=== PATIENT | male | born 1945 | race Caucasian/White ===

== ENCOUNTER 2016-11-20 19:04 | Inpatient (IN) | payer MEDICARE, OTHER ==
[2016-11-21] MEDS ORDERED: ONDANSETRON HCL INJ/PF 4 MG/2 ML SDV IV ONE ×2 (00:28→04:09)
[2016-11-21] MEDS ORDERED: MORPHINE SULFATE 10 MG/ML INJ IV ONE (00:28)
[2016-11-21] MEDS ORDERED: NORMAL SALINE 1000 ML 1,000 ML IV ONE ×3 (00:29→01:21)
--- NOTE | 2016-11-21 00:30 | ER Document Report ---
ED GI/ - General Chief Complaint: Nausea/Vomiting Stated Complaint: ABDOMINAL PAIN Time seen by provider: 00:25 Notes: Patient is a 71-year-old male that comes emergency department for chief complaint of pain is mid upper abdomen, symptoms started at about one time while he was eating, he states he vomited 4 times during the afternoon and evening, he states he still has some sharp pain in his mid abdomen. Denies abnormal bowel movements, denies blood in the vomit, denies fever, no obvious sick contacts. Patient is very healthy with only a history of hypertension, denies having any surgeries other than cosmetic. TRAVEL OUTSIDE OF THE [place] IN LAST 30 DAYS: No - Related Data Allergies/Adverse Reactions: No Known Allergies Allergy (Verified 11/21/16 01:30) Past Medical History - General Information source: Patient - Social History Smoking Status: Never Smoker Frequency of alcohol use: Heavy Drug Abuse: None Lives with: Family Family History: Reviewed & Not Pertinent - Past Medical History Cardiac Medical History: Reports: Hx Hypertension Renal/ Medical History: Denies: Hx Peritoneal Dialysis Past Surgical History: Reports: Other - nasal repair - Immunizations Hx Diphtheria, Pertussis, Tetanus Vaccination: Yes Review of Systems - Review of Systems Constitutional: No symptoms reported EENT: No symptoms reported Cardiovascular: No symptoms reported Respiratory: No symptoms reported Gastrointestinal: See HPI Genitourinary: No symptoms reported Male Genitourinary: No symptoms reported Musculoskeletal: No symptoms reported Skin: No symptoms reported Hematologic/Lymphatic: No symptoms reported Neurological/Psychological: No symptoms reported Physical Exam - Vital signs Vitals: Temp Pulse Resp BP Pulse Ox 97.7 F 90 18 147/90 H 97 11/20/16 19:57 11/20/16 19:57 11/20/16 19:57 11/20/16 19:57 11/20/16 19:57 Interpretation: Normal - General General appearance: Appears well, Alert In distress: None - HEENT Head: Normocephalic, Atraumatic Eyes: Normal Conjunctiva: Normal Extraocular movements intact: Yes Eyelashes: Normal Pupils: PERRL Sinus: Normal Nasal: Normal Mouth/Lips: Normal Mucous membranes: Normal Pharynx: Normal Neck: Normal - Respiratory Respiratory status: No respiratory distress Chest status: Nontender Breath sounds: Normal. No: Decreased air movement, Wheezing Chest palpation: Normal - Cardiovascular Rhythm: Regular. No: Tachycardia Heart sounds: Normal auscultation, S1 appreciated, S2 appreciated Murmur: No - Abdominal Inspection: Normal Distension: No distension Bowel sounds: Normal Tenderness: Tender - tender in epigastric and LUQ mainly, generally tender otherwise; umbilical hernia present, this was easily reduced, no evidence of obstruction Organomegaly: No organomegaly - Back Back: Normal, Nontender. No: Tender - Extremities General upper extremity: Normal inspection, Nontender, Normal color, Normal ROM , Normal temperature General lower extremity: Normal inspection, Nontender, Normal color, Normal ROM , Normal temperature, Normal weight bearing. No: Kailyn's sign - Neurological Neuro grossly intact: Yes Cognition: Normal Orientation: AAOx4 Vas[place] Coma Scale Eye Opening: Spontaneous [place] Coma Scale Verbal: Oriented [place] Coma Scale Motor: Obeys Commands [place] Coma Scale Total: 15 Speech: Normal Motor strength normal: LUE, RUE, LLE, RLE Sensory: Normal - Psychological Associated symptoms: Normal affect, Normal mood - Skin Skin Temperature: Warm Skin Moisture: Dry Skin Color: Normal Course - Re-evaluation Re-evalutation: Umbilical hernia is present but is easily reduced and is not tender. Tenderness is in the upper abdomen. CBC shows leukocytosis at 15,000 with elevated neutrophils, chemistries unremarkable except for significantly elevated lipase consistent with pancreatitis. Patient was already drinking contrast for a CT pending chemistry results, patient was unable to tolerate this and vomited twice, CT was performed without oral contrast being sufficiently drunk. CT shows pancreatitis , no other abnormalities. Patient was given additional symptom management, IV fluids. Patient much more comfortable on reevaluation. Discussed with Dr. Flores. Discussed with Dr. Newby, internal medicine, recommends an ultrasound to rule out completely the possibility of a small stone/obstruction. Ultrasound was performed and is normal. Patient admitted to the hospital for acute pancreatitis. - Vital Signs Vital signs: Temp Pulse Resp BP Pulse Ox 97.7 F 90 18 147/90 H 97 11/20/16 19:57 11/20/16 19:57 11/20/16 19:57 11/20/16 19:57 11/20/16 19:57 - Laboratory Result Diagrams: 11/21/16 00:14 11/21/16 00:14 Laboratory results interpreted by me: 11/21/16 11/21/16 11/21/16 00:14 00:14 00:14 WBC 15.1 H RDW 14.3 H Seg Neuts % (Manual) 88 H Lymphocytes % (Manual) 7 L Abs Neuts (Manual) 13.3 H BUN 22 H Glucose 161 H Lactic Acid 3.3 H Creatine Kinase 51 L Lipase 6918.2 H Urine Protein Urine Ketones Urine Blood Urine Ascorbic Acid 11/21/16 11/21/16 00:14 04:34 WBC RDW Seg Neuts % (Manual) Lymphocytes % (Manual) Abs Neuts (Manual) BUN Glucose Lactic Acid 2.3 H Creatine Kinase Lipase Urine Protein >=500 H Urine Ketones TRACE H Urine Blood SMALL H Urine Ascorbic Acid 20 H Discharge - Discharge Clinical Impression: Abdominal pain Qualifiers: Abdominal location: generalized Qualified Code(s): R10.84 - Generalized abdominal pain Vomiting Qualifiers: Vomiting type: unspecified Vomiting Intractability: non-intractable Nausea presence: with nausea Qualified Code(s): R11.2 - Nausea with vomiting, unspecified Pancreatitis Qualifiers: Chronicity: acute Pancreatitis type: alcohol induced Acute pancreatitis complication: unspecified Qualified Code(s): K85.20 - Alcohol induced acute pancreatitis without necrosis or infection Condition: Stable Disposition: ADMITTED INPATIENT Admitting Provider: Hospitalist Unit Admitted: Telemetry
[2016-11-21 00:42] LABS: APPEARANCE,URINE CLOUDY; BILIRUBIN,URINE NEGATIVE (NEGATIVE); GLUCOSE, URINE NEGATIVE (NEGATIVE); KETONES,URINE TRACE mg/dL (NEGATIVE); LEUKOCYTE ESTERASE,URINE NEGATIVE (NEGATIVE); NITRITE,URINE NEGATIVE (NEGATIVE); PROTEIN,URINE >=500 mg/dL (NEGATIVE); URINE SPECIFIC GRAVITY 1.031; UROBILINOGEN,URINE NEGATIVE mg/dL (<2.0)
[2016-11-21 00:43] LABS: ALANINE AMINOTRANSFERASE 30 U/L (21-72); ALBUMIN 4.8 g/dL (3.5-5.0); ALKALINE PHOSPHATASE 66 U/L (38-126); ASPARTATE AMINO TRANSFERASE 27 U/L (17-59); BILIRUBIN,DIRECT 0.1 mg/dL (0.0-0.4); BILIRUBIN,TOTAL 0.9 mg/dL (0.2-1.3); BLOOD UREA NITROGEN 22 mg/dL (7-20); CALCIUM 9.7 mg/dL (8.4-10.2); CHLORIDE 101 mmol/L (98-107); CREATINE KINASE 51 U/L (55-170); CREATININE RESULT 0.92 mg/dL (0.52-1.25); GLUCOSE 161 mg/dL (75-110); TOTAL PROTEIN 7.6 g/dL (6.3-8.2)
[2016-11-21 00:52] LABS: ANION GAP 18 (5-19); CARBON DIOXIDE 24 mmol/L (22-30); POTASSIUM 4.3 mmol/L (3.6-5.0); SODIUM 143.2 mmol/L (137-145)
[2016-11-21 00:59] LABS: LIPASE 6918.2 U/L (23-300)
[2016-11-21 01:04] LABS: HEMATOCRIT 48.2 % (37.9-51.0); HEMOGLOBIN 16.5 g/dL (13.5-17.0); HGB HCT DIFFERENCE 1.3; MEAN CORPUSCULAR HEMOGLOBIN 31.8 pg (27.0-33.4); MEAN CORPUSCULAR HGB CONC 34.3 g/dL (32.0-36.0); MEAN CORPUSCULAR VOLUME 93 fl (80-97); RED BLOOD COUNT 5.21 10^6/uL (4.35-5.55); RED CELL DISTRIBUTION WIDTH 14.3 % (11.5-14.0); WHITE BLOOD COUNT 15.1 10^3/uL (4.0-10.5)
[2016-11-21 01:06] LABS: BASOPHILS % (MANUAL) 0 % (0-2); EOSINOPHILS % (MANUAL) 0 % (0-6); LYMPHOCYTES % (MANUAL) 7 % (13-45); TOTAL CELLS COUNTED 100
[2016-11-21 01:08] LABS: ANISOCYTOSIS SLIGHT; TOXIC GRANULATION SLIGHT; TOXIC VACUOLATION PRESENT
[2016-11-21] MEDS ORDERED: HYDROMORPHONE HCL INJ/PF 2 MG/ML AMPULE IV ONE ×2 (01:53→04:09)
[2016-11-21] MEDS ORDERED: PROMETHAZINE HCL INJ 25 MG/1 ML VIAL IV PRN (07:33)
[2016-11-21] MEDS ORDERED: MORPHINE SULFATE 10 MG/ML INJ IV PRN (07:33)
[2016-11-21] MEDS ORDERED: ACETAMINOPHEN 325 MG TABLET PO PRN (07:33)
[2016-11-21 08:00] LABS: ADD ON TESTING BLD IN LAB ACKNOWLEDGE
[2016-11-21 08:25] LABS: CHOLESTEROL 217.48 mg/dL (0-200); Direct HDL 80 mg/dL (>40); TRIGLYCERIDES 53 mg/dL (<150)
[2016-11-21 08:35] LABS: DIRECT LDL 130 mg/dL (<100)
--- NOTE | 2016-11-21 08:40 | PDOC H&P ---
History of Present Illness Admission Date/PCP: 11/21/16 06:21 MAYLIN SANTOS MD Patient complains of: ABD PAIN, N/V History of Present Illness: YURI CARLISLE is a 71 year old male with underlying hypertension, and arthritis, who presents to the emergency room for evaluation of above complaints. Patient has been discussed with emergency room nurse practitioner who evaluated the patient. He describes the onset shortly after eating lunch on the of this month of fairly pronounced sharp epigastric abdominal pain without radiation. Nothing in particular made the pain worse. No prior such episodes. Multiple associated episodes of nonbloody emesis. No diarrhea. No fever or chills. No history of peptic ulcer disease. No history of pancreatitis. No problems with hyperlipidemia. Drinks 2 glasses of wine a day, occasionally more. No tobacco or illicit drug use. Laboratory results are listed in [employer] and are reviewed. X-ray summary results are listed below, with full report(s) reviewed. . EKG pending. Social history/personal habits: . 2 children. Retired. Personal habits as noted above. Allergies/adverse reactions NKDA. Home medications Home medications initially autopopulated into [employer] may not accurately reflect patient's true medications, dosages, and/or frequencies. oil bay technician to reconcile medications. Unfortunately, patient uncertain of all medications/dosages/frequencies. REVIEW OF SYSTEMS: Constitutional: No fever or chills. Eyes: Wears glasses. ENT: No swallowing problems or complaints. No hearing problems or complaints. Pulmonary: No current complaints. Cardiovascular: No current complaints, including chest pain. Gastrointestinal: See history and present illness. Skin: No current complaints, including rashes. Hematologic: No unusual easy bruising or bleeding. Neurologic: No current complaints, including numbness or tingling. Musculoskeletal: Mild Joint pain from arthritis. Psychiatric: No current complaints, including anxiety or depression. Endocrine: No current complaints, including polyuria. Genitourinary: No current complaints, including dysuria. PHYSICAL EXAMINATION: is present at his side; patient approves. 5 feet 8 inches tall. 106.5 kg. BMI 35.7 kg/m.Blood pressure 147/90. Temp 97.7. Pulse 90 and regular. Respirations are 20 and unlabored. 97% saturation on room air. Obese otherwise well-developed male appearing approximately his stated age. Pleasant awake alert and cooperative. No obvious distress other than perhaps mildly anxious. No agitation. Skin is warm and dry. No grossly obvious evidence of rash in areas of skin examined. No subcutaneous nodules palpated. ENT: Hearing grossly normal to normal conversation. Tongue midline on protrusion pink and slightly tacky. Eyes: No scleral icterus. Pupils equal and reactive to light at 4 mm. [place] conjunctivae. Neck is supple and nontender to gentle active range of motion and palpation. Midline trachea. No palpable thyroid nodule mass enlargement or tenderness. Lymphatic: No palpable cervical or clavicular nodes. Neck and lymphatic exams limited by patient body habitus. Psychiatric: Reasonable insight into acute and chronic medical issues. Oriented to time location and why here. Lungs: Auscultation reveals clear and equal breath sounds bilaterally. No use of accessory respiratory muscles. Cardiovascular: Heart regular rate and rhythm, without gallop murmur or rub. No carotid or abdominal aortic bruits. No ankle or pedal edema. Faintly palpable dorsalis pedis pulses. Abdomen: soft, somewhat obese, with occasional bowel sounds. Mild epigastric discomfort to palpation, but without evidence of guarding or peritoneal signs. Unable to adequately evaluate abdomen for masses or organomegaly due to body habitus and discomfort. Extremities: Feet are warm and dry. No calf tenderness to compression. No grossly obvious visual evidence of calf swelling. Gentle manipulation of lower extremities fails to reveal any obvious evidence of injury or instability to knees hips or ankles. Neurologic: Moves upper extremities grossly normally. Patellar reflexes absent. Absent Babinski. Light touch is intact at feet. Dorsiflexion and plantarflexion of feet 5 / 5 and symmetric. Past Medical History Cardiac Medical History: Reports: Hypertension Denies: Congestive Heart Failure, DVT, Myocardial Infarction, Hyperlipidema, Pulmonary Embolism Pulmonary Medical History: Denies: Asthma, Chronic Obstructive Pulmonary Disease (COPD), Sleep Apnea Neurological Medical History: Denies: Hemorrhagic CVA, Ischemic CVA, Seizures Endocrine Medical History: Denies: Diabetes Mellitus Type 1, Diabetes Mellitus Type 2, Hyperthyroidism, Hypothyroidism Renal/ Medical History: Reports: None GI Medical History: Denies: Cirrhosis, Gastroesophageal Reflux Disease, Hepatitis, Peptic Ulcer Disease Musculoskeltal Medical History: Reports: Arthritis Skin Medical History: Reports: Other - Several precancerous skin lesions have been removed by featheredger and reducer machine. Psychiatric Medical History: Denies: Depression, General Anxiety Disorder, Substance Abuse, Tobacco Dependency Hematology: Reports: None Infectious Medical History: Denies: Hepatitis B, Hepatitis C Past Surgical History Past Surgical History: Reports: Other - nasal repair Social History Information Source: Patient, Emergency Med Personnel, [facility] Records Lives with: Spouse/Significant other Smoking Status: Never Smoker Frequency of Alcohol Use: Social Drugs: None - Advance Directive Resuscitation Status: Full Code Surrogate healthcare decision maker:: Family History Family History: Reviewed & Not Pertinent Parental Family History Reviewed: Yes - uncertain, patient having been adopted. Children Family History Reviewed: Yes - Healthy Sibling(s) Family History Reviewed.: NA Medication/Allergy Home Medications: Fexofenadine HCl [Chela Allergy] 180 mg PO DAILY 11/21/16 Losartan/Hydrochlorothiazide [Hyzaar 100-12.5 Tablet] 1 tab PO DAILY 11/21/16 Allergies/Adverse Reactions: No Known Allergies Allergy (Verified 11/21/16 01:30) Physical Exam Vital Signs: Temp Pulse Resp BP Pulse Ox 97.7 F 90 18 147/90 H 97 11/20/16 19:57 11/20/16 19:57 11/20/16 19:57 11/20/16 19:57 11/20/16 19:57 Results Impressions: Abdomen/Pelvis CT 11/21/16 00:00 IMPRESSION: Small to moderate fluid dispersed through the abdomen probably related to pancreatitis ; laboratory correlation recommended. Abdomen Ultrasound 11/21/16 03:49 IMPRESSION: No acute findings. Limitation. Assessment & Plan - Diagnosis (1) DVT prophylaxis Is this a current diagnosis for this admission?: Yes (2) Pancreatitis Qualifiers: Chronicity: acute Pancreatitis type: unspecified pancreatitis type Acute pancreatitis complication: unspecified Qualified Code(s): K85.90 - Acute pancreatitis without necrosis or infection, unspecified Is this a current diagnosis for this admission?: YesPlan: Usual pancreatitis protocol, with ice chips only.. Medication for control of pain, nausea and vomiting. Lipid panel. I have strongly encouraged patient not to get out of bed without notifying staff , to avoid a fall with injury. Knee high SCDs for DVT prophylaxis, [along with subcutaneous Lovenox . Impression and plans were discussed with patient, and , both of whom concur. Time spent in evaluation and management of patient: 64 minutes. (3) Alcohol use Is this a current diagnosis for this admission?: YesPlan: Daily banana bag. Observe for signs of withdrawal. (4) HTN (hypertension) Qualifiers: Hypertension type: essential hypertension Qualified Code(s): I10 - Essential (primary) hypertension Is this a current diagnosis for this admission?: YesPlan: Resume home medications, which he states he takes only on a when necessary basis , as appropriate once these have been determined and reviewed. (5) Leukocytosis Qualifiers: Leukocytosis type: unspecified Qualified Code(s): D72.829 - Elevated white blood cell count, unspecified Is this a current diagnosis for this admission?: YesPlan: followup CBC w/differential. - Inpatient Certification Based on my medical assessment, after consideration of the patient's comorbidities, presenting symptoms, or acuity I expect that the services needed warrant INPATIENT care.: Yes I certify that my determination is in accordance with my understanding of Medicare's requirements for reasonable and necessary INPATIENT services [42 CFR 412.3e].: Yes Medical Necessity: Need Close Monitoring Due to Risk of Patient Decompensation, Need For IV Fluids, Need For Continuous Telemetry Monitoring, Need for Pain Control, Risk of Complication if Not Cared For in Hospital, Risk of Diagnosis Which Will Require Inpatient Eval/Care/Monitoring Post Hospital Care: D/C or Transfer Summary
[2016-11-21] MEDS: ONDANSETRON HCL INJ/PF 4 MG/2 ML SDV IV PRN (09:43)
[2016-11-21] MEDS: DOCUSATE SODIUM 100 MG CAPSULE PO SCH ×2 (11:46→17:07)
[2016-11-21] MEDS: ENOXAPARIN SODIUM INJ 40 MG/0.4 ML DISP.SYRIN SUBCUT SCH (11:48)
[2016-11-21] MEDS: NORMAL SALINE 1000 ML 1,000 ML with THIAMINE HCL 100 MG, MVI, ADULT NO.1 WITH VIT K 10 ... IV PRN ×4 (14:59)
[2016-11-21] MEDS: TRAMADOL HCL 50 MG TABLET PO PRN ×2 (15:19→19:47)
--- NOTE | 2016-11-21 15:35 | PDOC PROGRESS REPORT ---
Subjective Progress Note for:: 11/21/16 Subjective:: The patient was seen earlier today on rounds. The patient denies any diarrhea, shortness of breath, dizziness, chest pain, heart palpitations, fevers, or chills. At this time abdominal pain has been controlled with Tylenol. The patient does admit to having nausea but no vomiting. The patient has remained afebrile. Blood pressures are elevated. When prompted the patient voices no other concerns at this time. Review of systems: The rest of the review of systems is negative. Physical Exam Vital Signs: Temp Pulse Resp BP Pulse Ox 97.7 F 98 16 173/71 H 97 11/21/16 12:02 11/21/16 14:33 11/21/16 12:02 11/21/16 12:02 11/21/16 12:02 Intake & Output 11/19/16 11/20/16 11/21/16 23:59 23:59 23:59 Output Total 300 Balance -300 Weight 108.8 kg General appearance: PRESENT: no acute distress, cooperative, well-developed, well-nourished Head exam: PRESENT: atraumatic, normocephalic Eye exam: PRESENT: conjunctiva pink, EOMI, PERRLA. ABSENT: scleral icterus Ear exam: PRESENT: normal external ear exam Mouth exam: PRESENT: moist, tongue midline Neck exam: ABSENT: carotid bruit, JVD, lymphadenopathy, thyromegaly Respiratory exam: PRESENT: clear to auscultation emma, symmetrical, unlabored. ABSENT: rales, rhonchi, tachypnea, wheezes Cardiovascular exam: PRESENT: RRR. ABSENT: diastolic murmur, rubs, systolic murmur Pulses: PRESENT: normal dorsalis pedis pul Vascular exam: PRESENT: normal capillary refill GI/Abdominal exam: PRESENT: normal bowel sounds, soft, tenderness - Diffusely. ABSENT: distended, guarding, mass, organolmegaly, rebound Rectal exam: PRESENT: deferred Extremities exam: PRESENT: full ROM. ABSENT: calf tenderness, clubbing, pedal edema Neurological exam: PRESENT: alert, awake, oriented to person, oriented to place , oriented to time, oriented to situation, CN II-XII grossly intact. ABSENT: motor sensory deficit Psychiatric exam: PRESENT: appropriate affect, normal mood. ABSENT: homicidal ideation, suicidal ideation Skin exam: PRESENT: dry, intact, warm. ABSENT: cyanosis, rash Results Laboratory Results: Labs- Last Values WBC 15.1 10^3/uL (4.0-10.5) H 11/21/16 00:14 RBC 5.21 10^6/uL (4.35-5.55) 11/21/16 00:14 Hgb 16.5 g/dL (13.5-17.0) 11/21/16 00:14 Hct 48.2 % (37.9-51.0) 11/21/16 00:14 MCV 93 fl (80-97) 11/21/16 00:14 MCH 31.8 pg (27.0-33.4) 11/21/16 00:14 MCHC 34.3 g/dL (32.0-36.0) 11/21/16 00:14 RDW 14.3 % (11.5-14.0) H 11/21/16 00:14 Plt Count 284 10^3/uL (150-450) 11/21/16 00:14 Total Counted 100 11/21/16 00:14 Seg Neutrophils % Not Reportable 11/21/16 00:14 Seg Neuts % (Manual) 88 % (42-78) H 11/21/16 00:14 Lymphocytes % Not Reportable 11/21/16 00:14 Lymphocytes % (Manual) 7 % (13-45) L 11/21/16 00:14 Monocytes % Not Reportable 11/21/16 00:14 Monocytes % (Manual) 5 % (3-13) 11/21/16 00:14 Eosinophils % Not Reportable 11/21/16 00:14 Eosinophils % (Manual) 0 % (0-6) 11/21/16 00:14 Basophils % Not Reportable 11/21/16 00:14 Basophils % (Manual) 0 % (0-2) 11/21/16 00:14 Absolute Neutrophils Not Reportable 11/21/16 00:14 Abs Neuts (Manual) 13.3 10^3/uL (1.7-8.2) H 11/21/16 00:14 Absolute Lymphocytes Not Reportable 11/21/16 00:14 Abs Lymphs (Manual) 1.1 10^3/uL (0.5-4.7) 11/21/16 00:14 Absolute Monocytes Not Reportable 11/21/16 00:14 Abs Monocytes (Manual) 0.8 10^3/uL (0.1-1.4) 11/21/16 00:14 Absolute Eosinophils Not Reportable 11/21/16 00:14 Absolute Eos (Manual) 0.0 10^3/uL (0.0-0.6) 11/21/16 00:14 Absolute Basophils Not Reportable 11/21/16 00:14 Abs Basophils (Manual) 0.0 10^3/uL (0.0-0.2) 11/21/16 00:14 Toxic Granulation SLIGHT 11/21/16 00:14 Toxic Vacuolation PRESENT 11/21/16 00:14 Platelet Comment ADEQUATE 11/21/16 00:14 Anisocytosis SLIGHT 11/21/16 00:14 Sodium 143.2 mmol/L (137-145) 11/21/16 00:14 Potassium 4.3 mmol/L (3.6-5.0) 11/21/16 00:14 Chloride 101 mmol/L (98-107) 11/21/16 00:14 Carbon Dioxide 24 mmol/L (22-30) 11/21/16 00:14 Anion Gap 18 (5-19) 11/21/16 00:14 BUN 22 mg/dL (7-20) H 11/21/16 00:14 Creatinine 0.92 mg/dL (0.52-1.25) 11/21/16 00:14 Est GFR ( Amer) > 60 (>60) 11/21/16 00:14 Est GFR (Non-Af Amer) > 60 (>60) 11/21/16 00:14 Glucose 161 mg/dL (75-110) H 11/21/16 00:14 Lactic Acid 2.3 mmol/L (0.7-2.1) H 11/21/16 04:34 Calcium 9.7 mg/dL (8.4-10.2) 11/21/16 00:14 Magnesium 2.0 mg/dL (1.6-2.3) 11/21/16 00:14 Total Bilirubin 0.9 mg/dL (0.2-1.3) 11/21/16 00:14 Direct Bilirubin 0.1 mg/dL (0.0-0.4) 11/21/16 00:14 Indirect Bilirubin Not Reportable 11/21/16 00:14 Neonat Total Bilirubin Not Reportable 11/21/16 00:14 AST 27 U/L (17-59) 11/21/16 00:14 ALT 30 U/L (21-72) 11/21/16 00:14 Alkaline Phosphatase 66 U/L (38-126) 11/21/16 00:14 Creatine Kinase 51 U/L (55-170) L 11/21/16 00:14 Troponin I < 0.012 ng/mL 11/21/16 00:14 Total Protein 7.6 g/dL (6.3-8.2) 11/21/16 00:14 Albumin 4.8 g/dL (3.5-5.0) 11/21/16 00:14 Triglycerides 53 mg/dL (<150) 11/21/16 00:14 Cholesterol 217.48 mg/dL (0-200) H 11/21/16 00:14 LDL Cholesterol Direct 130 mg/dL (<100) H 11/21/16 00:14 VLDL Cholesterol 11.0 mg/dL (10-31) 11/21/16 00:14 HDL Cholesterol 80 mg/dL (>40) 11/21/16 00:14 Lipase 6918.2 U/L (23-300) H 11/21/16 00:14 Urine Color DARK YELLOW 11/21/16 00:14 Urine Appearance CLOUDY 11/21/16 00:14 Urine pH 5.0 (5.0-9.0) 11/21/16 00:14 Ur Specific [place] 1.031 11/21/16 00:14 Urine Protein >=500 mg/dL (NEGATIVE) H 11/21/16 00:14 Urine Glucose (UA) NEGATIVE mg/dL (NEGATIVE) 11/21/16 00:14 Urine Ketones TRACE mg/dL (NEGATIVE) H 11/21/16 00:14 Urine Blood SMALL (NEGATIVE) H 11/21/16 00:14 Urine Nitrite NEGATIVE (NEGATIVE) 11/21/16 00:14 Urine Bilirubin NEGATIVE (NEGATIVE) 11/21/16 00:14 Urine Urobilinogen NEGATIVE mg/dL (<2.0) 11/21/16 00:14 Ur Leukocyte Esterase NEGATIVE (NEGATIVE) 11/21/16 00:14 Urine WBC (Auto) 17 /HPF 11/21/16 00:14 Urine RBC (Auto) 13 /HPF 11/21/16 00:14 U Hyaline Cast (Auto) 35 /LPF 11/21/16 00:14 Squamous Epi Cells Auto 1 /HPF 11/21/16 00:14 Urine Mucus (Auto) MANY /LPF 11/21/16 00:14 Urine Ascorbic Acid 20 (NEGATIVE) H 11/21/16 00:14 Impressions: Abdomen/Pelvis CT 11/21/16 00:00 IMPRESSION: Small to moderate fluid dispersed through the abdomen probably related to pancreatitis ; laboratory correlation recommended. Abdomen Ultrasound 11/21/16 03:49 IMPRESSION: No acute findings. Limitation. Assessment & Plan - Diagnosis (1) Pancreatitis Qualifiers: Chronicity: acute Pancreatitis type: unspecified pancreatitis type Acute pancreatitis complication: unspecified Qualified Code(s): K85.90 - Acute pancreatitis without necrosis or infection, unspecified Is this a current diagnosis for this admission?: YesPlan: Possibly multi contributing factors including thiazide diuretic as well as daily alcohol use. Will continue to aggressively hydrate maintain nothing by mouth status and repeat lipase and labs in the a.m. (2) Sepsis Qualifiers: Sepsis type: sepsis due to unspecified organism Qualified Code(s): A41.9 - Sepsis, unspecified organism Is this a current diagnosis for this admission?: YesPlan: Secondary to #1. The patient's white count is elevated as well as the patient was making lactic acid but this does appear to be clearing. (3) HTN (hypertension) Qualifiers: Hypertension type: essential hypertension Qualified Code(s): I10 - Essential (primary) hypertension Is this a current diagnosis for this admission?: YesPlan: Will resume the patient's ARB however will discontinue thiazide diuretic. (4) Alcohol use Is this a current diagnosis for this admission?: Yes (5) DVT prophylaxis Is this a current diagnosis for this admission?: Yes - Time Time Spent with patient: 35 or more minutes Medications reviewed and adjusted accordingly: Yes Anticipated discharge: Home Within: within 24 hours, within 48 hours Disposition: The patient is a full code. Pending patient's symptomatology and diagnostic findings will reevaluate in the a.m.
[2016-11-21] MEDS ORDERED: LOSARTAN POTASSIUM 50 MG TABLET PO ONE (16:00)
--- NOTE | 2016-11-21 20:01 | EKG REPORT ---
SEVERITY:- BORDERLINE ECG - SINUS RHYTHM BORDERLINE LEFT AXIS DEVIATION BORDERLINE PROLONGED QT INTERVAL : Confirmed by: Casandra Cook MD 21-Nov-2016 20:01:22
[2016-11-22] MEDS: NORMAL SALINE 1000 ML 1,000 ML IV PRN ×2 (01:04→16:51)
[2016-11-22] MEDS: ONDANSETRON HCL INJ/PF 4 MG/2 ML SDV IV PRN (04:34)
[2016-11-22] MEDS: TRAMADOL HCL 50 MG TABLET PO PRN ×2 (04:34→18:06)
[2016-11-22 04:52] LABS: HEMATOCRIT 41.9 % (37.9-51.0); HGB HCT DIFFERENCE 0.4; MEAN CORPUSCULAR HEMOGLOBIN 31.2 pg (27.0-33.4); MEAN CORPUSCULAR HGB CONC 33.6 g/dL (32.0-36.0); MEAN CORPUSCULAR VOLUME 93 fl (80-97); RED CELL DISTRIBUTION WIDTH 14.5 % (11.5-14.0)
[2016-11-22 04:53] LABS: HEMOGLOBIN 14.1 g/dL (13.5-17.0)
[2016-11-22 05:04] LABS: ALANINE AMINOTRANSFERASE 26 U/L (21-72); ALBUMIN 3.7 g/dL (3.5-5.0); ALKALINE PHOSPHATASE 45 U/L (38-126); ANION GAP 12 (5-19); ASPARTATE AMINO TRANSFERASE 29 U/L (17-59); BILIRUBIN,DIRECT 0.4 mg/dL (0.0-0.4); BILIRUBIN,TOTAL 1.1 mg/dL (0.2-1.3); BLOOD UREA NITROGEN 19 mg/dL (7-20); CALCIUM 7.9 mg/dL (8.4-10.2); CARBON DIOXIDE 24 mmol/L (22-30); CHLORIDE 109 mmol/L (98-107); CREATININE RESULT 0.64 mg/dL (0.52-1.25); GLUCOSE 102 mg/dL (75-110); MAGNESIUM 1.9 mg/dL (1.6-2.3); POTASSIUM 3.8 mmol/L (3.6-5.0); SODIUM 145.1 mmol/L (137-145); TOTAL PROTEIN 6.3 g/dL (6.3-8.2)
[2016-11-22 05:11] LABS: BASOPHILS % (MANUAL) 0 % (0-2); EOSINOPHILS % (MANUAL) 0 % (0-6); LIPASE 2263.6 U/L (23-300); LYMPHOCYTES % (MANUAL) 9 % (13-45); TOTAL CELLS COUNTED 100
[2016-11-22 05:12] LABS: RBC MORPHOLOGY COMMENT NORMO-CYTIC/CHROMIC
[2016-11-22] MEDS: ENOXAPARIN SODIUM INJ 40 MG/0.4 ML DISP.SYRIN SUBCUT SCH (08:13)
[2016-11-22] MEDS: NORMAL SALINE 1000 ML 1,000 ML with THIAMINE HCL 100 MG, MVI, ADULT NO.1 WITH VIT K 10 ... IV PRN ×4 (09:09)
[2016-11-22] MEDS: LOSARTAN POTASSIUM 50 MG TABLET PO SCH (09:11)
[2016-11-22] MEDS: DOCUSATE SODIUM 100 MG CAPSULE PO SCH ×2 (09:12→18:06)
[2016-11-22] MEDS ORDERED: LORAZEPAM INJ 2 MG/1 ML VIAL IV ONE (09:45)
--- NOTE | 2016-11-22 15:26 | PDOC PROGRESS REPORT ---
Subjective Progress Note for:: 11/22/16 Subjective:: The patient was seen earlier today on rounds. The patient denies any diarrhea, shortness of breath, dizziness, chest pain, heart palpitations, fevers, or chills. The patient's main complaint is that he has been unable to get any sleep all night long. The patient states that his abdomen is still sore but no area of specific pain. The patient's nausea has been well controlled with Zofran. no vomiting. The patient has remained afebrile. Blood pressures are elevated. When prompted the patient voices no other concerns at this time. is present at the bedside and active in the patient's care. Review of systems: The rest of the review of systems is negative. Physical Exam Vital Signs: Temp Pulse Resp BP Pulse Ox 100.3 F 114 H 20 165/89 H 94 11/22/16 11:09 11/22/16 11:09 11/22/16 11:09 11/22/16 11:09 11/22/16 11:09 Intake & Output 11/20/16 11/21/16 11/22/16 23:59 23:59 23:59 Intake Total 2000 2200 Output Total 300 Balance 1700 2200 Weight 108.8 kg 109.2 kg General appearance: PRESENT: no acute distress, cooperative, well-developed, well-nourished Head exam: PRESENT: atraumatic, normocephalic Eye exam: PRESENT: conjunctiva pink, EOMI, PERRLA. ABSENT: scleral icterus Ear exam: PRESENT: normal external ear exam Mouth exam: PRESENT: moist, tongue midline Neck exam: ABSENT: carotid bruit, JVD, lymphadenopathy, thyromegaly Respiratory exam: PRESENT: clear to auscultation emma, symmetrical, unlabored. ABSENT: rales, rhonchi, tachypnea, wheezes Cardiovascular exam: PRESENT: RRR. ABSENT: diastolic murmur, rubs, systolic murmur Pulses: PRESENT: normal dorsalis pedis pul Vascular exam: PRESENT: normal capillary refill GI/Abdominal exam: PRESENT: normal bowel sounds, soft, tenderness - Diffusely. ABSENT: distended, guarding, mass, organolmegaly, rebound Rectal exam: PRESENT: deferred Extremities exam: PRESENT: full ROM. ABSENT: calf tenderness, clubbing, pedal edema Neurological exam: PRESENT: alert, awake, oriented to person, oriented to place , oriented to time, oriented to situation, CN II-XII grossly intact. ABSENT: motor sensory deficit Psychiatric exam: PRESENT: appropriate affect, normal mood. ABSENT: homicidal ideation, suicidal ideation Skin exam: PRESENT: dry, intact, warm. ABSENT: cyanosis, rash Results Laboratory Results: 11/22/16 04:31 11/22/16 04:31 11/22/16 11/22/16 11/22/16 04:31 04:31 09:35 WBC 24.0 H RBC 4.50 Hgb 14.1 D Hct 41.9 MCV 93 MCH 31.2 MCHC 33.6 RDW 14.5 H Plt Count 237 Seg Neutrophils % Not Reportable Lymphocytes % Not Reportable Monocytes % Not Reportable Eosinophils % Not Reportable Basophils % Not Reportable Absolute Neutrophils Not Reportable Absolute Lymphocytes Not Reportable Absolute Monocytes Not Reportable Absolute Eosinophils Not Reportable Absolute Basophils Not Reportable Sodium 145.1 H Potassium 3.8 Chloride 109 H Carbon Dioxide 24 Anion Gap 12 BUN 19 Creatinine 0.64 Est GFR ( Amer) > 60 Est GFR (Non-Af Amer) > 60 Glucose 102 Lactic Acid 1.6 Calcium 7.9 L Magnesium 1.9 Total Bilirubin 1.1 AST 29 ALT 26 Alkaline Phosphatase 45 Total Protein 6.3 Albumin 3.7 Lipase 2263.6 H Impressions: Abdomen/Pelvis CT 11/21/16 00:00 IMPRESSION: Small to moderate fluid dispersed through the abdomen probably related to pancreatitis ; laboratory correlation recommended. Abdomen Ultrasound 11/21/16 03:49 IMPRESSION: No acute findings. Limitation. Assessment & Plan - Diagnosis (1) Pancreatitis Qualifiers: Chronicity: acute Pancreatitis type: unspecified pancreatitis type Acute pancreatitis complication: unspecified Qualified Code(s): K85.90 - Acute pancreatitis without necrosis or infection, unspecified Is this a current diagnosis for this admission?: YesPlan: Possibly multi contributing factors including thiazide diuretic as well as daily alcohol use. Will continue to aggressively hydrate maintain nothing by mouth status and repeat lipase and labs in the a.m. overall lipase has improved the patient's clinical presentation has improved as well. (2) Sepsis Qualifiers: Sepsis type: sepsis due to unspecified organism Qualified Code(s): A41.9 - Sepsis, unspecified organism Is this a current diagnosis for this admission?: YesPlan: Secondary to #1. The patient is no longer making lactate. White count remains elevated will repeat in the a.m. (3) HTN (hypertension) Qualifiers: Hypertension type: essential hypertension Qualified Code(s): I10 - Essential (primary) hypertension Is this a current diagnosis for this admission?: YesPlan: Will resume the patient's ARB however will discontinue thiazide diuretic. (4) Alcohol use Is this a current diagnosis for this admission?: Yes (5) DVT prophylaxis Is this a current diagnosis for this admission?: Yes - Time Time Spent with patient: 35 or more minutes Medications reviewed and adjusted accordingly: Yes Anticipated discharge: Home Within: within 48 hours Disposition: The patient is a full code. Pending patient's symptomatology and diagnostic findings will reevaluate in the a.m.
[2016-11-22 15:48] LABS: APPEARANCE,URINE SLIGHTLY-CLOUDY; BILIRUBIN,URINE NEGATIVE (NEGATIVE); GLUCOSE, URINE NEGATIVE (NEGATIVE); KETONES,URINE TRACE mg/dL (NEGATIVE); LEUKOCYTE ESTERASE,URINE NEGATIVE (NEGATIVE); NITRITE,URINE NEGATIVE (NEGATIVE); PROTEIN,URINE 100 mg/dL (NEGATIVE); URINE SPECIFIC GRAVITY 1.025; UROBILINOGEN,URINE NEGATIVE mg/dL (<2.0)
[2016-11-22] MEDS: METOPROLOL TARTRATE PF/INJ 5 MG/5 ML SDV IV PRN (18:00)
[2016-11-22] MEDS: ENALAPRILAT DIHYDRATE INJ/PF 1.25 MG/1 ML SDV IV PRN (22:05)
[2016-11-23] MEDS: NORMAL SALINE 1000 ML 1,000 ML with THIAMINE HCL 100 MG, MVI, ADULT NO.1 WITH VIT K 10 ... IV PRN ×4 (04:09)
[2016-11-23] MEDS: LORAZEPAM 0.5 MG TABLET PO PRN ×2 (04:16→20:10)
[2016-11-23 06:02] LABS: HEMATOCRIT 37.7 % (37.9-51.0); HGB HCT DIFFERENCE 1.3; MEAN CORPUSCULAR HEMOGLOBIN 31.8 pg (27.0-33.4); MEAN CORPUSCULAR HGB CONC 34.5 g/dL (32.0-36.0); MEAN CORPUSCULAR VOLUME 92 fl (80-97); RED BLOOD COUNT 4.09 10^6/uL (4.35-5.55); RED CELL DISTRIBUTION WIDTH 14.6 % (11.5-14.0); WHITE BLOOD COUNT 17.2 10^3/uL (4.0-10.5)
[2016-11-23] MEDS: METOPROLOL TARTRATE PF/INJ 5 MG/5 ML SDV IV PRN ×2 (06:04→17:54)
[2016-11-23 06:28] LABS: ANION GAP 11 (5-19); BLOOD UREA NITROGEN 15 mg/dL (7-20); CALCIUM 7.6 mg/dL (8.4-10.2); CARBON DIOXIDE 24 mmol/L (22-30); CHLORIDE 110 mmol/L (98-107); CREATININE RESULT 0.66 mg/dL (0.52-1.25); GLUCOSE 94 mg/dL (75-110); LIPASE 411.8 U/L (23-300); MAGNESIUM 1.9 mg/dL (1.6-2.3); POTASSIUM 3.1 mmol/L (3.6-5.0); SODIUM 144.9 mmol/L (137-145)
[2016-11-23] MEDS: ENOXAPARIN SODIUM INJ 40 MG/0.4 ML DISP.SYRIN SUBCUT SCH (08:02)
[2016-11-23] MEDS: TRAMADOL HCL 50 MG TABLET PO PRN ×2 (08:02→22:06)
--- NOTE | 2016-11-23 08:39 | PDOC PROGRESS REPORT ---
Subjective Progress Note for:: 11/23/16 Subjective:: The patient was seen earlier today on rounds. The patient denies any diarrhea, shortness of breath, dizziness, chest pain, heart palpitations, fevers, or chills. The patient was able to get sleep with Ativan and states he feels much better. The patient states that his abdomen is still sore but no area of specific pain. The patient's nausea has been well controlled with Zofran. no vomiting. The patient has remained afebrile. Blood pressures are elevated. When prompted the patient voices no other concerns at this time. is present at the bedside and active in the patient's care. Review of systems: The rest of the review of systems is negative. Physical Exam Vital Signs: Temp Pulse Resp BP Pulse Ox 98.5 F 108 H 17 176/75 H 93 11/23/16 04:01 11/23/16 04:01 11/23/16 04:01 11/23/16 04:01 11/23/16 04:01 Intake & Output 11/21/16 11/22/16 11/23/16 23:59 23:59 23:59 Intake Total 2000 4200 2300 Output Total 396 376 9163 Balance 1700 3550 1125 Weight 108.8 kg 109.2 kg General appearance: PRESENT: no acute distress, cooperative, well-developed, well-nourished Head exam: PRESENT: atraumatic, normocephalic Eye exam: PRESENT: conjunctiva pink, EOMI, PERRLA. ABSENT: scleral icterus Ear exam: PRESENT: normal external ear exam Mouth exam: PRESENT: moist, tongue midline Neck exam: ABSENT: carotid bruit, JVD, lymphadenopathy, thyromegaly Respiratory exam: PRESENT: clear to auscultation emma, symmetrical, unlabored. ABSENT: rales, rhonchi, tachypnea, wheezes Cardiovascular exam: PRESENT: RRR. ABSENT: diastolic murmur, rubs, systolic murmur Pulses: PRESENT: normal dorsalis pedis pul Vascular exam: PRESENT: normal capillary refill GI/Abdominal exam: PRESENT: normal bowel sounds, soft, tenderness - Diffusely. ABSENT: distended, guarding, mass, organolmegaly, rebound Rectal exam: PRESENT: deferred Extremities exam: PRESENT: full ROM. ABSENT: calf tenderness, clubbing, pedal edema Neurological exam: PRESENT: alert, awake, oriented to person, oriented to place , oriented to time, oriented to situation, CN II-XII grossly intact. ABSENT: motor sensory deficit Psychiatric exam: PRESENT: appropriate affect, normal mood. ABSENT: homicidal ideation, suicidal ideation Skin exam: PRESENT: dry, intact, warm. ABSENT: cyanosis, rash Results Laboratory Results: 11/23/16 05:40 11/23/16 05:40 11/22/16 11/22/16 11/23/16 09:35 15:00 05:40 WBC 17.2 H RBC 4.09 L Hgb 13.0 L Hct 37.7 L MCV 92 MCH 31.8 MCHC 34.5 RDW 14.6 H Plt Count 168 Sodium Potassium Chloride Carbon Dioxide Anion Gap BUN Creatinine Est GFR ( Amer) Est GFR (Non-Af Amer) Glucose Lactic Acid 1.6 Calcium Magnesium Lipase Urine Color YELLOW Urine Appearance SLIGHTLY-CLOUDY Urine pH 5.0 Ur Specific [place] 1.025 Urine Protein 100 H Urine Glucose (UA) NEGATIVE Urine Ketones TRACE H Urine Blood MODERATE H Urine Nitrite NEGATIVE Ur Leukocyte Esterase NEGATIVE Urine WBC (Auto) 2 Urine RBC (Auto) 5 11/23/16 05:40 WBC RBC Hgb Hct MCV MCH MCHC RDW Plt Count Sodium 144.9 Potassium 3.1 L Chloride 110 H Carbon Dioxide 24 Anion Gap 11 BUN 15 Creatinine 0.66 Est GFR ( Amer) > 60 Est GFR (Non-Af Amer) > 60 Glucose 94 Lactic Acid Calcium 7.6 L Magnesium 1.9 Lipase 411.8 H Urine Color Urine Appearance Urine pH Ur Specific [place] Urine Protein Urine Glucose (UA) Urine Ketones Urine Blood Urine Nitrite Ur Leukocyte Esterase Urine WBC (Auto) Urine RBC (Auto) Impressions: Abdomen/Pelvis CT 11/21/16 00:00 IMPRESSION: Small to moderate fluid dispersed through the abdomen probably related to pancreatitis ; laboratory correlation recommended. Abdomen Ultrasound 11/21/16 03:49 IMPRESSION: No acute findings. Limitation. Assessment & Plan - Diagnosis (1) Pancreatitis Qualifiers: Chronicity: acute Pancreatitis type: unspecified pancreatitis type Acute pancreatitis complication: unspecified Qualified Code(s): K85.90 - Acute pancreatitis without necrosis or infection, unspecified Is this a current diagnosis for this admission?: YesPlan: Possibly multi contributing factors including thiazide diuretic as well as daily alcohol use. Lipase has normalized. Will start a fat free clear liquid diet. The patient's clinical presentation has improved as well. Will repeat labs in the am. (2) Sepsis Qualifiers: Sepsis type: sepsis due to unspecified organism Qualified Code(s): A41.9 - Sepsis, unspecified organism Is this a current diagnosis for this admission?: YesPlan: Secondary to #1. The patient is no longer making lactate. White count remains elevated but improved will repeat in the a.m. (3) HTN (hypertension) Qualifiers: Hypertension type: essential hypertension Qualified Code(s): I10 - Essential (primary) hypertension Is this a current diagnosis for this admission?: YesPlan: Resume the patient's ARB however will discontinue thiazide diuretic. Will continue PRN coverage for now. (4) Alcohol use Is this a current diagnosis for this admission?: Yes (5) DVT prophylaxis Is this a current diagnosis for this admission?: Yes (6) Hypokalemia Is this a current diagnosis for this admission?: YesPlan: Will replace. - Time Time Spent with patient: 25-34 minutes Medications reviewed and adjusted accordingly: Yes Anticipated discharge: Home Within: within 24 hours, within 48 hours
[2016-11-23] MEDS: POTASSIUM CHLORIDE 10 MEQ TABLET.SA PO SCH ×2 (09:17→21:15)
[2016-11-23] MEDS: DOCUSATE SODIUM 100 MG CAPSULE PO SCH ×2 (09:17→17:48)
[2016-11-23] MEDS: LOSARTAN POTASSIUM 50 MG TABLET PO SCH (09:17)
[2016-11-23] MEDS: ENALAPRILAT DIHYDRATE INJ/PF 1.25 MG/1 ML SDV IV PRN ×2 (13:37→22:06)
[2016-11-24 06:02] LABS: HEMATOCRIT 37.2 % (37.9-51.0); HEMOGLOBIN 12.6 g/dL (13.5-17.0); HGB HCT DIFFERENCE 0.6; MEAN CORPUSCULAR HEMOGLOBIN 31.4 pg (27.0-33.4); MEAN CORPUSCULAR HGB CONC 33.9 g/dL (32.0-36.0); MEAN CORPUSCULAR VOLUME 92 fl (80-97); RED BLOOD COUNT 4.02 10^6/uL (4.35-5.55); RED CELL DISTRIBUTION WIDTH 14.7 % (11.5-14.0); WHITE BLOOD COUNT 15.8 10^3/uL (4.0-10.5)
[2016-11-24 06:27] LABS: ANION GAP 10 (5-19); BLOOD UREA NITROGEN 15 mg/dL (7-20); CARBON DIOXIDE 24 mmol/L (22-30); CHLORIDE 107 mmol/L (98-107); CREATININE RESULT 0.55 mg/dL (0.52-1.25); GLUCOSE 93 mg/dL (75-110); LIPASE 74.2 U/L (23-300); MAGNESIUM 2.2 mg/dL (1.6-2.3); POTASSIUM 3.5 mmol/L (3.6-5.0); SODIUM 141.3 mmol/L (137-145)
[2016-11-24] MEDS: ENOXAPARIN SODIUM INJ 40 MG/0.4 ML DISP.SYRIN SUBCUT SCH (08:09)
[2016-11-24] MEDS ORDERED: POTASSIUM CHLORIDE 10 MEQ TABLET.SA PO ONE (09:04)
--- NOTE | 2016-11-24 09:13 | PDOC PROGRESS REPORT ---
Subjective Progress Note for:: 11/24/16 Subjective:: The patient was seen on rounds. Patient is out of bed to the bedside chair. Overall, much improved and able to tolerate liquid diet. The patient denies any diarrhea, shortness of breath, dizziness, chest pain, heart palpitations, fevers, or chills. feels Ativan agitates the patient. Patient asked for Tylenol PM at bedtime tonight. The patient states that his abdomen is still sore but no area of specific pain. The patient's nausea has resolved. No vomiting. The patient has remained afebrile. Blood pressures are elevated. When prompted the patient voices no other concerns at this time. is present at the bedside and active in the patient's care. Review of systems: The rest of the review of systems is negative. Physical Exam Vital Signs: Temp Pulse Resp BP Pulse Ox 97.9 F 101 H 20 166/72 H 94 11/24/16 07:52 11/24/16 07:52 11/24/16 07:52 11/24/16 07:52 11/24/16 07:52 Intake & Output 11/22/16 11/23/16 11/24/16 23:59 23:59 23:59 Intake Total 4200 2942 400 Output Total 650 1575 600 Balance 3550 1367 -200 Weight 109.2 kg General appearance: PRESENT: no acute distress, cooperative, well-developed, well-nourished Head exam: PRESENT: atraumatic, normocephalic Eye exam: PRESENT: conjunctiva pink, EOMI, PERRLA. ABSENT: scleral icterus Ear exam: PRESENT: normal external ear exam Mouth exam: PRESENT: moist, tongue midline Neck exam: ABSENT: carotid bruit, JVD, lymphadenopathy, thyromegaly Respiratory exam: PRESENT: clear to auscultation emma, symmetrical, unlabored. ABSENT: rales, rhonchi, tachypnea, wheezes Cardiovascular exam: PRESENT: RRR. ABSENT: diastolic murmur, rubs, systolic murmur Pulses: PRESENT: normal dorsalis pedis pul Vascular exam: PRESENT: normal capillary refill GI/Abdominal exam: PRESENT: normal bowel sounds, soft, tenderness - Diffusely. ABSENT: distended, guarding, mass, organolmegaly, rebound Rectal exam: PRESENT: deferred Extremities exam: PRESENT: full ROM. ABSENT: calf tenderness, clubbing, pedal edema Neurological exam: PRESENT: alert, awake, oriented to person, oriented to place , oriented to time, oriented to situation, CN II-XII grossly intact. ABSENT: motor sensory deficit Psychiatric exam: PRESENT: appropriate affect, normal mood. ABSENT: homicidal ideation, suicidal ideation Skin exam: PRESENT: dry, intact, warm. ABSENT: cyanosis, rash Results Laboratory Results: 11/24/16 05:47 11/24/16 05:47 11/24/16 11/24/16 05:47 05:47 WBC 15.8 H RBC 4.02 L Hgb 12.6 L Hct 37.2 L MCV 92 MCH 31.4 MCHC 33.9 RDW 14.7 H Plt Count 199 Sodium 141.3 Potassium 3.5 L Chloride 107 Carbon Dioxide 24 Anion Gap 10 BUN 15 Creatinine 0.55 Est GFR ( Amer) > 60 Est GFR (Non-Af Amer) > 60 Glucose 93 Calcium 8.0 L Magnesium 2.2 Lipase 74.2 11/22/16 15:00 Catheterized Urine Urine Culture - Final 5,000 col/ml Impressions: Abdomen/Pelvis CT 11/21/16 00:00 IMPRESSION: Small to moderate fluid dispersed through the abdomen probably related to pancreatitis ; laboratory correlation recommended. Abdomen Ultrasound 11/21/16 03:49 IMPRESSION: No acute findings. Limitation. Assessment & Plan - Diagnosis (1) Pancreatitis Qualifiers: Chronicity: acute Pancreatitis type: unspecified pancreatitis type Acute pancreatitis complication: unspecified Qualified Code(s): K85.90 - Acute pancreatitis without necrosis or infection, unspecified Is this a current diagnosis for this admission?: YesPlan: Possibly multi contributing factors including thiazide diuretic as well as daily alcohol use. Lipase has normalized. Will advance to a fat free full liquid diet. The patient's clinical presentation has improved as well. Will repeat labs in the am. (2) Sepsis Qualifiers: Sepsis type: sepsis due to unspecified organism Qualified Code(s): A41.9 - Sepsis, unspecified organism Is this a current diagnosis for this admission?: YesPlan: Secondary to #1. The patient is no longer making lactate. White count remains elevated but improved will repeat in the a.m. (3) HTN (hypertension) Qualifiers: Hypertension type: essential hypertension Qualified Code(s): I10 - Essential (primary) hypertension Is this a current diagnosis for this admission?: YesPlan: Resume the patient's ARB however did discontinue thiazide diuretic. Will continue PRN coverage for now. Add a trial of Norvasc. (4) Alcohol use Is this a current diagnosis for this admission?: Yes (5) DVT prophylaxis Is this a current diagnosis for this admission?: Yes (6) Hypokalemia Is this a current diagnosis for this admission?: YesPlan: Will replace. - Time Time Spent with patient: 25-34 minutes Medications reviewed and adjusted accordingly: Yes Anticipated discharge: Home Within: within 24 hours
[2016-11-24] MEDS: AMLODIPINE BESYLATE 5 MG TABLET PO SCH ×2 (09:33→22:35)
[2016-11-24] MEDS: LOSARTAN POTASSIUM 50 MG TABLET PO SCH (09:34)
[2016-11-24] MEDS: DOCUSATE SODIUM 100 MG CAPSULE PO SCH ×2 (09:35→17:36)
[2016-11-24] MEDS: ENALAPRILAT DIHYDRATE INJ/PF 1.25 MG/1 ML SDV IV PRN (17:37)
[2016-11-24] MEDS ORDERED: DIPHENHYDRAMINE HCL 25 MG CAPSULE PO SCH (22:00)
[2016-11-24] MEDS: METOPROLOL TARTRATE PF/INJ 5 MG/5 ML SDV IV PRN (22:49)
[2016-11-25 06:53] LABS: HEMATOCRIT 38.8 % (37.9-51.0); HEMOGLOBIN 13.4 g/dL (13.5-17.0); HGB HCT DIFFERENCE 1.4; MEAN CORPUSCULAR HEMOGLOBIN 31.5 pg (27.0-33.4); MEAN CORPUSCULAR HGB CONC 34.4 g/dL (32.0-36.0); MEAN CORPUSCULAR VOLUME 92 fl (80-97); RED BLOOD COUNT 4.23 10^6/uL (4.35-5.55); RED CELL DISTRIBUTION WIDTH 14.7 % (11.5-14.0); WHITE BLOOD COUNT 16.3 10^3/uL (4.0-10.5)
[2016-11-25 07:21] LABS: ANION GAP 12 (5-19); BLOOD UREA NITROGEN 13 mg/dL (7-20); CALCIUM 8.5 mg/dL (8.4-10.2); CARBON DIOXIDE 24 mmol/L (22-30); CHLORIDE 104 mmol/L (98-107); CREATININE RESULT 0.62 mg/dL (0.52-1.25); GLUCOSE 95 mg/dL (75-110); MAGNESIUM 2.4 mg/dL (1.6-2.3); POTASSIUM 3.3 mmol/L (3.6-5.0)
[2016-11-25] MEDS ORDERED: POTASSIUM CHLORIDE 10 MEQ TABLET.SA PO ONE (08:45)
[2016-11-25] MEDS: ENOXAPARIN SODIUM INJ 40 MG/0.4 ML DISP.SYRIN SUBCUT SCH (08:53)
[2016-11-25] MEDS ORDERED: CEFTRIAXONE 1 GM/D5W RTU 1 GM/50 ML RTUPB IV ONE (09:00)
[2016-11-25] MEDS ORDERED: CEFUROXIME 500 MG TABLET PO SCH (10:00)
[2016-11-25] MEDS: DOCUSATE SODIUM 100 MG CAPSULE PO SCH (10:24)
[2016-11-25] MEDS: LOSARTAN POTASSIUM 50 MG TABLET PO SCH (10:24)
[2016-11-25] MEDS: AMLODIPINE BESYLATE 5 MG TABLET PO SCH (10:24)
[2016-11-25 10:36] VITALS: BP 180/88
--- NOTE | 2016-11-25 15:39 | PDOC DISCHARGE SUMMARY ---
General - Admit/Disc Date/PCP Admission Date/Primary Care Provider: 11/21/16 07:34 MAYLIN ARANA MD Discharge Date: 11/25/16 - Discharge Diagnosis (1) Pancreatitis Is this a current diagnosis for this admission?: Yes (2) Sepsis Is this a current diagnosis for this admission?: Yes (3) HTN (hypertension) Is this a current diagnosis for this admission?: Yes (4) Alcohol use Is this a current diagnosis for this admission?: Yes (5) Hypokalemia Is this a current diagnosis for this admission?: Yes (6) UTI (urinary tract infection) Is this a current diagnosis for this admission?: Yes (7) DVT prophylaxis Is this a current diagnosis for this admission?: Yes - Additional Information Resuscitation Status: Full Code Discharge Diet: As Tolerated - Low fat Discharge Activity: Activity As Tolerated Home Medications: Fexofenadine HCl [Chela Allergy] 180 mg PO DAILY 11/21/16 Amlodipine Besylate [Norvasc 5 mg Tablet] 5 mg PO Q12 #60 tablet 11/25/16 Cefuroxime Axetil [Ceftin 500 mg Tablet] 500 mg PO BID #8 tablet 11/25/16 Losartan Potassium [Cozaar 100 mg Tablet] 100 mg PO DAILY #30 tablet 11/25/16 History of Present Illness Patient complains of: Nausea vomiting and abdominal pain History of Present Illness: YURI CARLISLE is a 71 year old male male with underlying hypertension, and arthritis, who presents to the emergency room for evaluation of above complaints. The patient described the onset shortly after eating lunch on the of this month of fairly pronounced sharp epigastric abdominal pain without radiation. Nothing in particular made the pain worse. No prior such episodes. Multiple associated episodes of nonbloody emesis. No diarrhea. No fever or chills. No history of peptic ulcer disease. No history of pancreatitis. No problems with hyperlipidemia. Drinks 2 glasses of wine a day, occasionally more. No tobacco or illicit drug use. Upon presentation the patient's lipase was elevated and diagnostic suggestive of pancreatitis. Patient was referred to the hospitalist remission and management. Hospital Course Hospital Course: The patient was admitted to a continuous telemetry unit. The patient maintained NPO status and aggressively hydrated. The patient's lipase improved and low fat diet advanced accordingly without an increase in lipase. The patient's symptoms of abdominal pain, nausea, or vomiting were managed with appropriate analgesia and/or antiemetic. The patient is now able to maintain hydration. Patient did have a UA that was suggestive of possible UTI. The patient was given Ceftin for this. The patient was noted to be significantly hypertensive. The patient was started on Norvasc for which he tolerated. Recommend the patient abstain from thiazide diuretics given his pancreatitis. Patient has had complete symptom resolution and is very eager for discharge. Physical Exam Vital Signs: Temp Pulse Resp BP Pulse Ox 97.8 F 98 20 180/88 H 95 11/25/16 10:35 11/25/16 10:35 11/25/16 10:35 11/25/16 10:35 11/25/16 10:35 Intake & Output 11/23/16 11/24/16 11/25/16 23:59 23:59 23:59 Intake Total 2942 1030 222 Output Total 1575 1600 1450 Balance 1367 -570 -1228 General appearance: PRESENT: no acute distress, cooperative, well-developed, well-nourished Head exam: PRESENT: atraumatic, normocephalic Eye exam: PRESENT: conjunctiva pink, EOMI, PERRLA. ABSENT: scleral icterus Ear exam: PRESENT: normal external ear exam Mouth exam: PRESENT: moist, tongue midline Neck exam: ABSENT: carotid bruit, JVD, lymphadenopathy, thyromegaly Respiratory exam: PRESENT: clear to auscultation emma, symmetrical, unlabored. ABSENT: rales, rhonchi, tachypnea, wheezes Cardiovascular exam: PRESENT: RRR. ABSENT: diastolic murmur, rubs, systolic murmur Pulses: PRESENT: normal dorsalis pedis pul Vascular exam: PRESENT: normal capillary refill GI/Abdominal exam: PRESENT: normal bowel sounds, soft, tenderness - Diffusely. ABSENT: distended, guarding, mass, organolmegaly, rebound Rectal exam: PRESENT: deferred Extremities exam: PRESENT: full ROM. ABSENT: calf tenderness, clubbing, pedal edema Neurological exam: PRESENT: alert, awake, oriented to person, oriented to place , oriented to time, oriented to situation, CN II-XII grossly intact. ABSENT: motor sensory deficit Psychiatric exam: PRESENT: appropriate affect, normal mood. ABSENT: homicidal ideation, suicidal ideation Skin exam: PRESENT: dry, intact, warm. ABSENT: cyanosis, rash Results Laboratory Results: Labs- Last Values WBC 16.3 10^3/uL (4.0-10.5) H 11/25/16 06:40 RBC 4.23 10^6/uL (4.35-5.55) L 11/25/16 06:40 Hgb 13.4 g/dL (13.5-17.0) L 11/25/16 06:40 Hct 38.8 % (37.9-51.0) 11/25/16 06:40 MCV 92 fl (80-97) 11/25/16 06:40 MCH 31.5 pg (27.0-33.4) 11/25/16 06:40 MCHC 34.4 g/dL (32.0-36.0) 11/25/16 06:40 RDW 14.7 % (11.5-14.0) H 11/25/16 06:40 Plt Count 246 10^3/uL (150-450) 11/25/16 06:40 Total Counted 100 11/22/16 04:31 Seg Neutrophils % Not Reportable 11/22/16 04:31 Seg Neuts % (Manual) 87 % (42-78) H 11/22/16 04:31 Lymphocytes % Not Reportable 11/22/16 04:31 Lymphocytes % (Manual) 9 % (13-45) L 11/22/16 04:31 Monocytes % Not Reportable 11/22/16 04:31 Monocytes % (Manual) 4 % (3-13) 11/22/16 04:31 Eosinophils % Not Reportable 11/22/16 04:31 Eosinophils % (Manual) 0 % (0-6) 11/22/16 04:31 Basophils % Not Reportable 11/22/16 04:31 Basophils % (Manual) 0 % (0-2) 11/22/16 04:31 Absolute Neutrophils Not Reportable 11/22/16 04:31 Abs Neuts (Manual) 20.9 10^3/uL (1.7-8.2) H 11/22/16 04:31 Absolute Lymphocytes Not Reportable 11/22/16 04:31 Abs Lymphs (Manual) 2.2 10^3/uL (0.5-4.7) 11/22/16 04:31 Absolute Monocytes Not Reportable 11/22/16 04:31 Abs Monocytes (Manual) 1.0 10^3/uL (0.1-1.4) 11/22/16 04:31 Absolute Eosinophils Not Reportable 11/22/16 04:31 Absolute Eos (Manual) 0.0 10^3/uL (0.0-0.6) 11/22/16 04:31 Absolute Basophils Not Reportable 11/22/16 04:31 Abs Basophils (Manual) 0.0 10^3/uL (0.0-0.2) 11/22/16 04:31 Toxic Granulation SLIGHT 11/21/16 00:14 Toxic Vacuolation PRESENT 11/21/16 00:14 Platelet Comment ADEQUATE 11/22/16 04:31 Anisocytosis SLIGHT 11/21/16 00:14 RBC Morph Comment NORMO-CYTIC/CHROMIC 11/22/16 04:31 Sodium 140.0 mmol/L (137-145) 11/25/16 06:40 Potassium 3.3 mmol/L (3.6-5.0) L 11/25/16 06:40 Chloride 104 mmol/L (98-107) 11/25/16 06:40 Carbon Dioxide 24 mmol/L (22-30) 11/25/16 06:40 Anion Gap 12 (5-19) 11/25/16 06:40 BUN 13 mg/dL (7-20) 11/25/16 06:40 Creatinine 0.62 mg/dL (0.52-1.25) 11/25/16 06:40 Est GFR ( Amer) > 60 (>60) 11/25/16 06:40 Est GFR (Non-Af Amer) > 60 (>60) 11/25/16 06:40 Glucose 95 mg/dL (75-110) 11/25/16 06:40 Lactic Acid 1.6 mmol/L (0.7-2.1) 11/22/16 09:35 Calcium 8.5 mg/dL (8.4-10.2) 11/25/16 06:40 Magnesium 2.4 mg/dL (1.6-2.3) H 11/25/16 06:40 Total Bilirubin 1.1 mg/dL (0.2-1.3) 11/22/16 04:31 Direct Bilirubin 0.4 mg/dL (0.0-0.4) 11/22/16 04:31 Indirect Bilirubin Not Reportable 11/22/16 04:31 Neonat Total Bilirubin Not Reportable 11/22/16 04:31 AST 29 U/L (17-59) 11/22/16 04:31 ALT 26 U/L (21-72) 11/22/16 04:31 Alkaline Phosphatase 45 U/L (38-126) 11/22/16 04:31 Creatine Kinase 51 U/L (55-170) L 11/21/16 00:14 Troponin I < 0.012 ng/mL 11/21/16 00:14 Total Protein 6.3 g/dL (6.3-8.2) 11/22/16 04:31 Albumin 3.7 g/dL (3.5-5.0) 11/22/16 04:31 Triglycerides 53 mg/dL (<150) 11/21/16 00:14 Cholesterol 217.48 mg/dL (0-200) H 11/21/16 00:14 LDL Cholesterol Direct 130 mg/dL (<100) H 11/21/16 00:14 VLDL Cholesterol 11.0 mg/dL (10-31) 11/21/16 00:14 HDL Cholesterol 80 mg/dL (>40) 11/21/16 00:14 Lipase 74.2 U/L (23-300) 11/24/16 05:47 Urine Color YELLOW 11/22/16 15:00 Urine Appearance SLIGHTLY-CLOUDY 11/22/16 15:00 Urine pH 5.0 (5.0-9.0) 11/22/16 15:00 Ur Specific [place] 1.025 11/22/16 15:00 Urine Protein 100 mg/dL (NEGATIVE) H 11/22/16 15:00 Urine Glucose (UA) NEGATIVE mg/dL (NEGATIVE) 11/22/16 15:00 Urine Ketones TRACE mg/dL (NEGATIVE) H 11/22/16 15:00 Urine Blood MODERATE (NEGATIVE) H 11/22/16 15:00 Urine Nitrite NEGATIVE (NEGATIVE) 11/22/16 15:00 Urine Bilirubin NEGATIVE (NEGATIVE) 11/22/16 15:00 Urine Urobilinogen NEGATIVE mg/dL (<2.0) 11/22/16 15:00 Ur Leukocyte Esterase NEGATIVE (NEGATIVE) 11/22/16 15:00 Urine WBC (Auto) 2 /HPF 11/22/16 15:00 Urine RBC (Auto) 5 /HPF 11/22/16 15:00 U Hyaline Cast (Auto) 35 /LPF 11/21/16 00:14 Squamous Epi Cells Auto 1 /HPF 11/21/16 00:14 Urine Mucus (Auto) RARE /LPF 11/22/16 15:00 Urine Ascorbic Acid NEGATIVE (NEGATIVE) 11/22/16 15:00 11/22/16 15:00 Urine Culture - Final Catheterized Urine 5,000 col/ml 11/22/16 10:47 Blood Culture - Preliminary Blood NO GROWTH AFTER 72 HOURS 11/22/16 09:35 Blood Culture - Preliminary Blood NO GROWTH AFTER 72 HOURS Impressions: Abdomen/Pelvis CT 11/21/16 00:00 IMPRESSION: Small to moderate fluid dispersed through the abdomen probably related to pancreatitis ; laboratory correlation recommended. Abdomen Ultrasound 11/21/16 03:49 IMPRESSION: No acute findings. Limitation. Qualifiers PATEINT BEING DISCHARGED WITH ANY OF THE FOLLOWING DIAGNOSIS?: No Plan Discharge Plan: The patient is to followup with their primary care provider, Dr. Arana, within one week for hospital followup regarding pancreatitis. Time Spent: Less than 30 Minutes
[2016-11-26] MEDS ORDERED: CEFUROXIME 500 MG TABLET PO SCH (18:00)
== END 2016-11-25 11:42 | disposition home or self-care (01) | DRG 871 ==
LOC: ER 19:04 → EH 11-21 06:21 → UNDOADMIN 11-21 06:21 → EH 11-21 07:34 → 5 11-21 09:03 → EH 11-21 09:03
PROVIDERS: ADMIT Family Medicine; ATTEND Family Medicine
DX: A41.9 Sepsis, unspecified organism (principal); K85.20 Alcohol induced acute pancreatitis without necrosis or infection; N39.0 Urinary tract infection, site not specified; I10 Essential (primary) hypertension; E87.6 Hypokalemia; R11.2 Nausea with vomiting, unspecified; Z72.89 Other problems related to lifestyle
CPT/HCPCS: 36415; 74177; 76705; 80048; 80053; 80061; 80076; 81001; 82550; 83605; 83690; 83735; 84484; 85025; 85027; 87040; 87086; 93005; 93010; 96374; 96375; 96376; 99285; J0696; J1170; J1650; J2060; J2270; J2405; J3411; J3490; J7030